=== PATIENT | male | born 1990 | race Caucasian/White ===

== ENCOUNTER → 2019-06-26 | Emergency (ER) | payer OTHER ==
[2019-06-26] MEDS: SOD CHLORIDE 0.9% 1,000 ML IV (12:19)
[2019-06-26] MEDS: ONDANSETRON 4 MG INJ IV (12:20)
== END | disposition home or self-care (01) ==
LOC: FTE 10:35
DX: R11.2 Nausea with vomiting, unspecified (principal); Z91.010 Allergy to peanuts
CPT/HCPCS: 99283; J7030